=== PATIENT | female | born 1940 | race Caucasian/White ===

== ENCOUNTER 2016-12-18 07:31 | Day surgery (SDC) | payer OTHER, MEDICARE ==
[2016-12-15 17:02] VITALS: BMI 25.7
[2016-12-18] MEDS ORDERED: PROPOFOL 20 ML ONE ×2 (09:02)
[2016-12-18] MEDS ORDERED: ROCURONIUM BROMIDE 50 MG/5 ML VIAL ONE (09:04)
[2016-12-18] MEDS ORDERED: SUCCINYLCHOLINE CHLORIDE 200 MG/10 ML VIAL ONE (09:06)
[2016-12-18] MEDS ORDERED: ePHEDrine SULFATE 50 MG/1 ML AMPULE ONE (09:37)
[2016-12-18] MEDS ORDERED: NEOSTIGMINE METHYLSULFATE 0.5 MG/ML - 10 ML MDV ONE (10:02)
[2016-12-18] MEDS ORDERED: GLYCOPYRROLATE 0.2 MG/1 ML VIAL ONE (11:43)
[2016-12-18] MEDS ORDERED: oxyCODONE HCL 5 MG TABLET PO PRN (12:21)
[2016-12-18] MEDS ORDERED: ONDANSETRON 4 MG/2 ML VIAL IVPUSH PRN (12:21)
[2016-12-18] MEDS ORDERED: ONDANSETRON 4 MG/2 ML VIAL ONE (12:29)
[2016-12-18] MEDS ORDERED: LACTATED RINGERS SOLUTION 1,000 ML IV SCH (12:30)
[2016-12-18] MEDS ORDERED: ONDANSETRON 4 MG/2 ML VIAL IVPUSH ONE (12:32)
--- NOTE | 2016-12-18 12:40 | OP ---
DATE OF OPERATION: 12/18/2016 PREOPERATIVE DIAGNOSIS: Left hip gluteus medius tendinopathy, bursitis. POSTOPERATIVE DIAGNOSIS: Left hip gluteus medius tendinopathy, bursitis. PROCEDURE: Left hip arthroscopy with greater trochanteric bursectomy, gluteus medius repair. SURGEON: Keyshawn Reyna MD COMFORT FILLER: Debi Cummingseney, whose skillful assistance was necessary for the safe and timely performance of this procedure. Ms. Faria was able to assist in patient positioning, drive the camera, assist in the insertion of arthroscopic instruments as well as assist in the insertion of orthopedic hardware. She was able to assist in suture passage, as well. ANESTHESIA TYPE: General. POSTOPERATIVE CONDITION: Stable. COMPLICATIONS: None. IMPLANTS: Arthrex SwiveLock 4.75-mm BioComposite anchor x1. INDICATIONS: This is a pleasant 76-year-old woman who has been suffering from lateral hip pain for many months. She was treated conservatively with physical therapy, oral medications, multiple injections, and failed to have lasting relief. Treatment options including nonoperative versus operative management were discussed in detail. Operative risks were reviewed including bleeding, infection, neurovascular injury, need for further surgery, postoperative pain and stiffness, the pain may be worse than prior to surgery. We reviewed medical risks such as heart attack, stroke, DVT, PE, and . We reviewed that healing from the surgery takes many, many months. Physical therapy and protected weightbearing will be required afterwards. I discussed use of perioperative DVT prophylaxis as well as perioperative antibiotic prophylaxis. Patient voiced understanding and elected to proceed. DESCRIPTION OF PROCEDURE: The patient was brought to the operating room where general anesthesia was administered. She was then placed in the lateral decubitus position , careful to pad all bony prominences. The left lower extremity was then prepped and draped in the usual sterile fashion. A preoperative dose of antibiotics were given, and the usual time-out procedure was performed. Sequential compression devices were placed onto the contralateral leg prior to the procedure. The incisions were now planned out over the greater trochanter, one just distal to the vastus ridge was initially used for visualization. The camera was now inserted through a stab incision here. Initially, the iliotibial band was visualized. The subcutaneous fatty tissue was debrided off the iliotibial band to provide exposure of the structure. This was then split in line with its fibers. This was done using a blunt trocar and then spreading up and down. The camera was now passed into the trochanteric bursa. Here, utilizing 55 as well as the 35 shaver, a trochanteric bursectomy was performed. This exposed the gluteus tendon attaching onto the greater trochanter. A probe was used to examine the gluteus tendon and was passed easily through the tendon where a comparable gap was felt under the tendon consistent with partial-thickness tearing. Utilizing this gap, the 35 shaver was inserted and debrided any nonviable tissue. A rasp was used to create a bleeding bed of bone in the gluteus medius insertion. It should be noted that this was all performed through a portal inserted from just proximal to the greater trochanter. A FiberTape suture was now passed through both sides of the tear. An anchor was punched and then inserted after letting the sutures down into the greater trochanter, reducing the tear down to the footprint. The additional sutures left over from the anchor were now passed utilizing a 90-degree suture passer to further close the gap more distally. At this point, the repair was examined, and it was found to be stable. The camera was now withdrawn back to the level of the iliotibial band. Utilizing three No. 2 FiberWire sutures, the opening made was closed. The excess fluid at this point was withdrawn from the hip. Portals were sutured using 3-0 Vicryl and 3-0 nylon. Sterile dressings were placed. The patient was extubated, transferred to the recovery room in stable condition. Angie HILTON/[id number]
[2016-12-18 16:06] VITALS: TEMP 97.7
[2016-12-18 16:16] VITALS: BP 99/66; PULSE 76
== END 2016-12-18 15:50 | disposition home or self-care (01) ==
LOC: FASU 07:31
PROVIDERS: ATTEND Orthopaedic Surgery Sports Medicine
PROC: 0SBB4ZZ Excision of Left Hip Joint, Percutaneous Endoscopic Approach (ICD-10-PCS; principal; 2016-12-18 09:00)
DX: M67.02 Short Achilles tendon (acquired), left ankle (principal); M71.552 Other bursitis, not elsewhere classified, left hip
CPT/HCPCS: 94760

== ENCOUNTER 2017-12-15 16:36 | Emergency (ER) | payer OTHER, MEDICARE ==
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
[2017-12-15 16:54] VITALS: BP 158/81; PULSE 68; TEMP 98.8; BMI 25.4
--- NOTE | 2017-12-15 17:03 | PDOC ---
History of Present Illness - General Chief Complaint: Injury Stated Complaint: LAC TO FOREHEAD Time Seen by Provider: 12/15/17 16:37 - History of Present Illness Initial Comments: 12/15/17 17:03 The patient is a 77 year old female with no significant PMH who presents for evaluation of a laceration to her forehead. The patient reports that she hit her head on the edge of her car trunk while it was closing today and sustained a laceration to her forehead. She denies LOC, dizziness, weakness at the time of the event besides headache. She otherwise denies fevers, chills, SOB, chest pain, nausea, vomiting, abdominal pain, or changes with urination or bowel movements. She notes that her last tetanus shot was 3 years ago. She denies any anticoagulant use including aspirin. Past History - Past Medical History Allergies/Adverse Reactions: Allergies Allergy/AdvReac Type Severity Reaction Status Date / Time cortisone Allergy Facial Verified 12/15/17 16:38 redness, dyspnea meperidine HCl [From Demerol] Allergy Vomiting Verified 12/15/17 16:38 prednisone Allergy Facial Verified 12/15/17 16:38 redness Home Medications: Ambulatory Orders Calcium Carbonate/Vitamin D3 [Calcium + Vitamin D Tablet] 1 each PO DAILY tablet 11/17/13 Diphenhydramine HCl [Benadryl Allergy] 25 mg PO DAILY tablet 11/17/13 Multivitamin [Daily Vitamin] 1 each PO DAILY tablet 11/17/13 Magee-3 Fatty Acids/Fish Oil [[place] 3 1,000 Mg Softgel] 1 each PO DAILY capsule 11/17/13 Anemia: No Asthma: No Cancer: No Cardiac Disorders: No CVA: No COPD: No CHF: No Dementia: No Diabetes: No GI Disorders: No Disorders: No HTN: No Hypercholesterolemia: No Liver Disease: No Seizures: No Thyroid Disease: No - Surgical History Abdominal Surgery: No Appendectomy: No Cardiac Surgery: No Cholecystectomy: No Lung Surgery: No Neurologic Surgery: No Orthopedic Surgery: No - Immunization History Immunization Up to Date: Yes - Suicide/Smoking/Psychosocial Hx Smoking History: Former smoker Have you smoked in the past 12 months: No If you are a former smoker, when did you quit?: FOR A SHORT TIME AND STOPPED AT 24 Information on smoking cessation initiated: No Hx Alcohol Use: Yes (RARELY) Drug/Substance Use Hx: No Substance Use Type: None Review of Systems - Review of Systems Comments:: 12/15/17 17:06 Constitutional: No fevers, chills, fatigue, malaise HEENT: No Rhinorrhea, nasal congestion, visual changes Cardiovascular: No chest pain, syncope, palpitations, lightheadedness Respiratory: No Cough, SOB, Hemoptysis, Gastrointestinal: No Abdominal pain, Nausea, Vomiting, Constipation, Diarrhea, Melena Genitourinary: No Dysuria, Frequency, Urgency, Hesitancy, Hematuria, Flank pain Musculoskeletal: No Myalgia, arthralgia Skin: Laceration to the Forehead. No rashes, itching, bruising, pallor Neurologic: Headache. No Dizziness, Numbness, Weakness, or Tingling Psychiatric: No Hallucinations. No SI or HI *Physical Exam - Vital Signs Last Vital Signs Temp Pulse Resp BP Pulse Ox 98.8 F 68 20 158/81 98 12/15/17 16:37 12/15/17 16:37 12/15/17 16:37 12/15/17 16:37 12/15/17 16:37 - Physical Exam Comments: 12/15/17 17:08 General Appearance: Nourished. No Apparent Distress HEENT: EOMI, EVIE. 3cm horizontal linear superficial laceration to the forehead without surrounding ecchymosis. No Pharyngeal Erythema, Tonsillar Exudate, Tonsillar Erythema Neck: No Cervical Lymphadenopathy Respiratory/Chest: Lungs Clear, Normal Breath Sounds. No Crackles, Rales, Rhonchi, Wheezing Cardiovascular: Regular Rhythm, Regular Rate. No Murmur, Gallops, Rubs Gastrointestinal/Abdominal: Normal Bowel Sounds, Soft. 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 Normal Finger to Nose and Heel to Lopez Moderate Sedation - Procedure Monitoring Vital Signs: Vital Signs Temp Pulse Resp BP Pulse Ox 98.8 F 68 20 158/81 98 12/15/17 16:37 12/15/17 16:37 12/15/17 16:37 12/15/17 16:37 12/15/17 16:37 Procedures - Laceration/Wound Repair Upper Medial Face Wound Length: to 2.5 cm Wound Explored: clean, no foreign body present Wound's Depth, Shape: superficial, linear Irrigated w/ Saline: Yes Wound Repaired With: Dermabond Layer Closure: Yes Sterile Dressing Applied: Yes Medical Decision Making - Medical Decision Making 12/15/17 17:09 The patient is a 77 year old female with no significant PMH who presents for evaluation of a laceration to her forehead. Given the patient's clinical presentation, low risk mechanism of injury, and lack of LOC, we do not believe the patient requires further head imaging at this time. The laceration was irrigated, cleansed, and repaired with dermabond. Proper wound care was discussed with the patient as well as return precautions including but not limited to: worsening headache, dizziness, weakness, nausea, or vomiting. The patient has a recent tetanus shot within 5 years and does not require re- vaccination at this time. We are comfortable discharging the patient home at this time with primary care provider follow up. We discussed the plan with the patient who voiced understanding and is agreeable with the plan and understands return precautions for worsening symptoms. *DC/Admit/Observation/Transfer Diagnosis at time of Disposition: Laceration - Discharge Dispostion Disposition: HOME Condition at time of disposition: Stable Decision to Admit order: No - Referrals - Patient Instructions Printed Discharge Instructions: DI for Laceration Repair With Dermabond Additional Instructions: Please return to the ER immediately if you experience any concerning or worsening symptoms including worsening headache, nausea, vomiting, dizziness, vision changes, or weakness in your extremities. Your laceration was repaired with dermabond today here in the ER. Please keep the wound clean and dry for 5 days while your laceration heals. You may use ibuprofen or tylenol as needed for pain management. Please call to schedule a follow up appointment with your primary care provider to discuss your ER visit within 1 week. - Post Discharge Activity
[2017-12-15] MEDS ORDERED: ACETAMINOPHEN 325 MG TABLET (FP) PO ONE (17:13)
[2017-12-15] MEDS ORDERED: ACETAMINOPHEN 325 MG TABLET (FP) ONE (17:14)
== END 2017-12-15 17:17 | disposition home or self-care (01) ==
LOC: FER 16:36
PROC: 0HQ1XZZ Repair Face Skin, External Approach (ICD-10-PCS; principal; 2017-12-15)
DX: S01.81XA Laceration without foreign body of other part of head, initial encounter (principal); W22.8XXA Striking against or struck by other objects, initial encounter; Y93.89 Activity, other specified; Y92.410 Unspecified street and highway as the place of occurrence of the external cause; Z87.891 Personal history of nicotine dependence
CPT/HCPCS: 12011; 99281-25

== ENCOUNTER 2019-08-19 08:51 | Emergency (ER) | payer OTHER, MEDICARE ==
[2019-08-19] MEDS ORDERED: LIDOCAINE 5% TOPICAL PATCH TP ONE (09:17)
[2019-08-19 09:22] VITALS: BP 137/92; PULSE 91; TEMP 98.2; BMI 26.4
--- NOTE | 2019-08-19 09:22 | PDOC ---
Attending Attestation - Resident Resident Name: Gerald Trent - ED Attending Attestation I have performed the following: I have examined & evaluated the patient, The case was reviewed & discussed with the resident, I agree w/resident's findings & plan, Exceptions are as noted - HPI HPI: 08/19/19 09:20 78yo F hx chronic back pain presents to the ED with R>L lower back pain. Reports "spasms." Occur only when moving, twisting motions of trunk or leaning forward. Began 10 days ago while she had a cough and URI sxs that have since resolved. Denies trauma, falls. Sees Dr. Polanco, had XR yesterday and prescribed tramadol (took this AM) and flexeril (took last night) but with minimal relief. No focal weakness/numbness, urine/stool incont/retention. Able to feel toilet paper when she wipes. Denies fevers, chills, headache, dizziness, cp, sob, abd pain, n/v/d, LE edema. - Physicial Exam PE: 08/19/19 14:21 GENERAL: Awake, alert, and fully oriented, in no acute distress HEAD: No signs of trauma EYES: PERRLA, EOMI, sclera anicteric, conjunctiva clear ENT: Auricles normal inspection, hearing grossly normal, nares patent, oropharynx clear without exudates. Moist mucosa NECK: Normal ROM, supple, no lymphadenopathy, JVD, or masses LUNGS: Breath sounds equal, clear to auscultation bilaterally. No wheezes, and no crackles HEART: Regular rate and rhythm, normal S1 and S2, no murmurs, rubs or gallops ABDOMEN: Soft, nontender, normoactive bowel sounds. No guarding, no rebound. No masses EXTREMITIES: Normal range of motion, no edema. No clubbing or cyanosis. No cords, erythema, or tenderness BACK: No midline cervical, thoracic, or lumbar ttp. +b/l R>L paraspinal lumbar ttp, +palpable muscle tightness to L paraspinal area NEUROLOGICAL: Normal speech, cranial nerves intact, /5 strength in all 4 extremities, normal sensation to light touch in all 4 extremities, normal cerebellar exam, normal gait, normal reflexes and tone SKIN: Warm, Dry, normal turgor, no rashes or lesions noted. - Medical Decision Making 08/19/19 14:22 78yo F presents to the ED for low back pain that began while coughing High suspicion for muscle strain/spasm Pt has no numbness or tingling in the groin, no loss of bowel or bladder function, normal sensation and stregnth to the LE, and normal reflexes. There is no clinical evidence of cauda equina syndrome, diskitis, osteomyelitis, epidural abscess, or any other acute surgical back pathology. MRI is not emergently indicated at this time. Pt requests X-rays as they were ordered by Dr. Polanco - negative on my read Pain signifincatly improved with robaxin, lidocaine patch, and IM toradol. Ambulatory in ED with steady gait, well appearing Plan to DC with naproxen, lido patch, robaxin Pt to f/u with Dr. Polanco for PT referral I discussed the physical exam findings, ancillary test results and final diagnoses with the patient. I answered all of the patient's questions. The patient was satisfied with the care received and felt comfortable with the discharge plan and treatment plan. The patient will call their primary care physician within 24 hours to arrange follow-up and will return to the Emergency Department with any new, persistent or worsening symptoms.
[2019-08-19] MEDS ORDERED: KETOROLAC TROMETHAMINE 15 MG/ML VIAL IM ONE (09:26)
[2019-08-19] MEDS ORDERED: LIDOCAINE 5% TOPICAL PATCH ONE (09:26)
[2019-08-19] MEDS ORDERED: METHOCARBAMOL 500 MG TABLET PO ONE (09:27)
--- NOTE | 2019-08-19 09:30 | PDOC ---
History of Present Illness - General Chief Complaint: Back Pain Stated Complaint: BACK PAIN Time Seen by Provider: 08/19/19 08:53 History Source: Patient Exam Limitations: No Limitations - History of Present Illness Initial Comments: 08/19/19 09:30 78 yo femal pmh L greater trochanter bursitis (s/p tendon repair by Dr. Reyna) BIBA to the ED for 10 days of worsening loewr back pain. Pt states she has had back pain to this area in the past however, due to the intensity, decided to come to the ER today. Pt saw PCP, Dr. Polanco yesterday, was given flexiril and tramadol (last took flexiril last night and tramadol this am) without sig improvement. Pt admits to worsening pain with all ROM of the back, with cough and with ambulation, denies weakness/sensory deficits to the lower ext, saddle anesthesia, incontinence or retention of stool or urine, midline back pain, abdominal pain, F/C/N/V, CP, SOB, recent travel, changes in urinary habits Past History - Past Medical History Allergies/Adverse Reactions: Allergies Allergy/AdvReac Type Severity Reaction Status Date / Time cortisone Allergy Facial Verified 08/19/19 08:53 redness, dyspnea meperidine HCl [From Demerol] Allergy Vomiting Verified 08/19/19 08:53 prednisone Allergy Facial Verified 08/19/19 08:53 redness Home Medications: Ambulatory Orders Calcium Carbonate/Vitamin D3 [Calcium + Vitamin D Tablet] 1 each PO DAILY tablet 11/17/13 Diphenhydramine HCl [Benadryl Allergy] 25 mg PO DAILY tablet 11/17/13 Multivitamin [Daily Vitamin] 1 each PO DAILY tablet 11/17/13 Cyclobenzaprine HCl [Flexeril 10 mg] 5 mg PO BID 08/19/19 Lidocaine 5% Patch [Lidoderm Patch -] 1 patch TP DAILY #7 patch 08/19/19 Methocarbamol [Robaxin -] 500 mg PO BID #14 tablet 08/19/19 Naproxen [EC-Naproxen] 500 mg PO BID #14 tablet. 08/19/19 Tramadol HCl 50 mg PO TID 08/19/19 Anemia: No Asthma: No Cancer: No Cardiac Disorders: No CVA: No COPD: No CHF: No Dementia: No Diabetes: No GI Disorders: No Disorders: No HTN: No Hypercholesterolemia: No Liver Disease: No Seizures: No Thyroid Disease: No - Surgical History Abdominal Surgery: No Appendectomy: No Cardiac Surgery: No Cholecystectomy: No Lung Surgery: No Neurologic Surgery: No Orthopedic Surgery: No - Immunization History Immunization Up to Date: Yes - Psycho Social/Smoking Cessation Hx Smoking History: Former smoker Have you smoked in the past 12 months: No If you are a former smoker, when did you quit?: FOR A SHORT TIME AND STOPPED AT 24 Information on smoking cessation initiated: No Hx Alcohol Use: Yes (RARELY) Drug/Substance Use Hx: No Substance Use Type: None Review of Systems - Review of Systems Constitutional: No: Chills, Fever Respiratory: No: Shortness of Breath Cardiac (ROS): No: Chest Pain ABD/GI: No: Constipated, Diarrhea, Nausea, Vomiting : No: Burning, Dysuria, Frequency, Flank Pain, Incontinence Musculoskeletal: Yes: Back Pain. No: Muscle Weakness, Neck Pain Neurological: No: Numbness, Paresthesia, Weakness, Unsteady Gait, Ataxia *Physical Exam - Vital Signs Last Vital Signs Temp Pulse Resp BP Pulse Ox 98.2 F 91 H 19 137/92 96 08/19/19 08:52 08/19/19 08:52 08/19/19 08:52 08/19/19 08:52 08/19/19 08:52 - Physical Exam General Appearance: Yes: Nourished, Appropriately Dressed. No: Apparent Distress HEENT: positive: EOMI Neck: positive: Supple. negative: Carotid bruit Respiratory/Chest: positive: Lungs Clear, Normal Breath Sounds. negative: Accessory Muscle Use, Rapid RR, Crackles, Rales, Rhonchi, Stridor, Wheezing Cardiovascular: positive: Regular Rhythm, Regular Rate, S1, S2. negative: Edema , JVD, Murmur Vascular Pulses: Dorsalis-Pedis (R): 4+, Doralis-Pedis (L): 4+ Gastrointestinal/Abdominal: positive: Flat, Soft. negative: Pulsatile Mass, Distended, Guarding, Rebound, Tenderness Musculoskeletal: negative: CVA Tenderness Extremity: positive: Normal Capillary Refill, Normal Inspection Integumentary: positive: Normal Color, Dry, Warm Neurologic: positive: Fully Oriented, Alert, Normal Mood/Affect, Normal Response , Motor Strength 5/5, Other (neg straight leg raise). negative: Sensory Deficit , Confused, Disoriented Medical Decision Making - Medical Decision Making 08/19/19 12:36 78 yo femal pmh L greater trochanter bursitis (s/p tendon repair by Dr. Reyna) BIBA to the ED for 10 days of worsening loewr back pain. Pt states she has had back pain to this area in the past however, due to the intensity, decided to come to the ER today. Pt saw PCP, Dr. Polanco yesterday, was given flexiril and tramadol (last took flexiril last night and tramadol this am) without sig improvement. Pt admits to worsening pain with all ROM of the back, with cough and with ambulation, denies weakness/sensory deficits to the lower ext, saddle anesthesia, incontinence or retention of stool or urine, midline back pain, abdominal pain, F/C/N/V, CP, SOB, recent travel, changes in urinary habits vitals WNL Pt appears comfortable in bed, ambulates to bathroom prior to medication given lidoderm patch, toradol and robaxin with resolution of symptoms X ray neg for acute fracture no concerning neuro findings for cauda equina, no midline spine tenderness Pain located to R piriformis on palpation without radiation of pain Pt safe for DC home with PCP follow up. Discharge - Discharge Information Problems reviewed: Yes Clinical Impression/Diagnosis: Muscle strain Condition: Stable - Admission No - Additional Discharge Information Prescriptions: Lidocaine 5% Patch [Lidoderm Patch -] 1 patch TP DAILY #7 patch Methocarbamol [Robaxin -] 500 mg PO BID #14 tablet Naproxen [EC-Naproxen] 500 mg PO BID #14 tablet.dr - Follow up/Referral Referrals: Joby Polanco MD [Primary Care Provider] - - Patient Discharge Instructions Patient Printed Discharge Instructions: DI for Low Back Pain Additional Instructions: Please see your Primary Doctor within the next 48 hours. Take the medications as prescribed for your back pain. Return to the ER for new or concerning symptoms including but not limited to: altered sensation to your groin, urine or stool incontinence or retention, weakness or numbness into your lower ext, fevers. Thank you - Post Discharge Activity
[2019-08-19] MEDS ORDERED: KETOROLAC TROMETHAMINE 30 MG/1 ML VIAL ONE (09:35)
[2019-08-19] MEDS ORDERED: METHOCARBAMOL 500 MG TABLET ONE (09:35)
[2019-08-19] MEDS ORDERED: morphine SULFATE 4 MG/ML VIAL IVPUSH ONE (10:59)
[2019-08-19] MEDS ORDERED: LIDOCAINE PATCH REMOVAL MC SCH (22:00)
== END 2019-08-19 11:55 | disposition home or self-care (01) ==
LOC: FER 08:51 → SUPCPDRO 08:51 → FER 11:55
PROC: 3E0233Z Introduction of Anti-inflammatory into Muscle, Percutaneous Approach (ICD-10-PCS; principal; 2019-08-19)
DX: S39.012A Strain of muscle, fascia and tendon of lower back, initial encounter (principal); X58.XXXA Exposure to other specified factors, initial encounter; Y93.89 Activity, other specified; Y92.89 Other specified places as the place of occurrence of the external cause; Z88.8 Allergy status to other drugs, medicaments and biological substances; Z87.891 Personal history of nicotine dependence
CPT/HCPCS: 73523-TC-FY; 81003; 87086; 96372; 99282-25

== ENCOUNTER 2021-05-07 21:36 | Emergency (ER) | payer OTHER, MEDICARE ==
[2021-05-07 23:51] VITALS: BMI 26.0
[2021-05-08 01:02] VITALS: BP 100/51; PULSE 70; TEMP 99.3
[2021-05-08 01:26] LABS: BASO % 0.3 % (0-2.0); EOS % 0.1 % (0-4.5); HEMATOCRIT 34.3 % (32.4-45.2); HEMOGLOBIN 11.6 GM/dL (10.7-15.3); LYMPH % 6.6 % (8-40); MCH 30.2 pg (25.7-33.7); MCHC 33.6 g/dl (32.0-36.0); MEAN CELL VOLUME 89.9 fl (80-96); MEAN PLT VOLUME 9.3 fl (7.5-11.1); MONO % 7.4 % (3.8-10.2); NEUT % 85.6 % (42.8-82.8); PLATELET COUNT 169 10^3/uL (134-434); RBC 3.82 M/mm3 (3.60-5.2); RDW 12.6 % (11.6-15.6); WHITE BLOOD COUNT 11.8 K/mm3 (4.0-10.0)
[2021-05-08 01:30] LABS: EPI CELLS 13 /uL (0-25.1); HYALINE CASTS 3 /uL (0-3.1); PH,URINE 6.5 (5.0-8.0); URINE APPEARANCE CLEAR; URINE BACTERIA 44 /uL (0-1359); URINE BILIRUBIN NEGATIVE (NEGATIVE); URINE COLOR YELLOW; URINE GLUCOSE (UA) NEGATIVE (NEGATIVE); URINE KETONE 2+ (NEGATIVE); URINE LEUK ESTERASE 1+ (NEGATIVE); URINE NITRITE NEGATIVE (NEGATIVE); URINE PROTEIN NEGATIVE (NEGATIVE); URINE RBC 7 /uL (0-23.9); URINE UROBILINOGEN 0.2 mg/dL (0.2-1.0); URINE WBC 35 /uL (0-25.8)
[2021-05-08 01:48] LABS: CHLORIDE 102 mmol/L (98-107); SODIUM 136 mmol/L (136-145)
[2021-05-08 01:50] LABS: CALCIUM 8.5 mg/dL (8.5-10.1)
[2021-05-08 01:51] LABS: ALBUMIN 3.3 g/dl (3.4-5.0); ANION GAP 11 MMOL/L (8-16); BLOOD UREA NITROGEN 10.7 mg/dL (7-18); CO2 23 mmol/L (21-32)
[2021-05-08 01:54] LABS: CREATININE 0.6 mg/dL (0.55-1.3); GLUCOSE,RANDOM 111 mg/dL (74-106); SGPT/ALT 17 U/L (13-61)
[2021-05-08 01:56] LABS: SGOT/AST 18 U/L (15-37); TOT PROT 6.7 g/dl (6.4-8.2)
[2021-05-08 01:59] LABS: ALK PHOS 82 U/L (45-117)
[2021-05-08 02:00] LABS: BILIRUBIN,TOTAL 0.7 mg/dL (0.2-1)
== END 2021-05-08 02:07 | disposition home or self-care (01) ==
LOC: FER 21:36
DX: J06.9 Acute upper respiratory infection, unspecified (principal); W19.XXXA Unspecified fall, initial encounter; Y92.9 Unspecified place or not applicable
CPT/HCPCS: 36415; 70450-TC; 71045-TC-FY; 80053; 81003; 82550; 84484; 85025; 93005; 99284-25